=== PATIENT | male | born 2005 | race African-American/Black ===

== ENCOUNTER 2024-02-03 11:26 | Emergency (ER) | payer OTHER, SELFPAY ==
[2024-02-03 11:29] VITALS: BP 143/77; PULSE 109; RESP 16; TEMP 37; O2SAT 97; BMI 29.8
--- NOTE | 2024-02-03 11:38 | ED_ITS ---
HPI - General Adult General Date Seen: 02/03/24 Chief complaint: Extremity Pain/Injury, Upper Stated complaint: Dislocated left middle finger Time Seen by Provider: 02/03/24 11:35 History of Present Illness HPI narrative: This is a very pleasant generally help 18-year-old male presenting to the ER today with his teammate for evaluation of a left hand middle finger injury. 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 Injury happened less than an hour prior to arrival. He jammed his finger. His team diabetes trainer thought that he had a finger dislocation and try to relocated, but was unsuccessful. Therefore the diabetes trainer sent the patient in. He is having pain at the PIP joint. He is not able to flex and extend that joint it does appear to be deformed. No distal numbness. Normal distal cap refill. No other injuries per Related Data Home Medications ?Medication ?Instructions ?Recorded ?Confirmed No Known Home Medications 02/03/24 02/03/24 Allergies Allergy/AdvReac Type Severity Reaction Status Date / Time No Known Drug Allergies Allergy Verified 02/03/24 11:29 PFSH PFS Social History Smoking Status: Never smoker Do you use any of these nicotine containing products: None How often do you have a drink containing alcohol: 2-4 times a month AUDIT-C Alcohol total score: 2 Non-prescribed substance use: denies use Exam Narrative: Exam Narrative: Constitutional: Appears well-developed and well-nourished. Active. Non-toxic appearing. HENT: Head: Atraumatic. No signs of injury. Nose: No nasal discharge. Mouth/Throat: Mucous membranes are moist. Pharynx is normal. Tonsils symmetric. Uvula midline. Airway patent. Eyes: Conjunctivae normal and EOM are normal. Pupils are equal, round, and reactive to light. Right eye exhibits no discharge. Left eye exhibits no discharge. No icterus. Neck: Normal range of motion. Neck supple. No adenopathy. No stridor. Cardiovascular: Normal rate and regular rhythm. No murmur heard. No murmurs, rubs, or gallops. Brisk capillary refill Pulmonary/Chest: Effort normal. No stridor. No respiratory distress. Musculoskeletal: Normal except for left hand 3rd digit (middle finger). Patient has pain with swelling and deformity at the PIP joint. The PIP P joint is flexed and almost appears to be slightly ulnar deviated. He is not able to extend the PIP joint. He is not having any tenderness at the D IP joint but he is not able to flex the D IP. There appears to be some volar dislocation and ulnar angulation at the PIP joint or possibly angulation in the middle phalanx. Normal distal cap refill. He normal radial and ulnar digital nerve sensory function. No tenderness of the metacarpal, MCP joint, or the proximal phalanges. Distal phalanges nontender. Neurological: Alert. Normal strength. No cranial nerve deficit or sensory deficit. Coordination normal. GCS eye subscore is 4. GCS verbal subscore is 5. GCS motor subscore is 6. Skin: Skin is warm. No rash noted. Const: Vital Signs, click to edit/add: Vital Signs - 24 hr 02/03/24 11:29 Temperature 98.6 F Pulse Rate [Pulse Oximeter] 109 H Respiratory Rate 16 Blood Pressure [Ri ght Upper Arm] 143/77 H Pulse Oximetry 97 Oxygen Delivery Me thod Room Air Course Course ED Course: Patient arrived was triaged into ER room 3 with his friend. Discussed options for pain management. Patient gave verbal consent for digital block Procedure: Digital block Indication-left hand middle finger injury and middle finger pain Sterile preparation using Betadine. Using and 27 gauge needle from a volar approach we infiltrated 3 mL of 1% lidocaine without epi at the proximal phalanx. We massaged the anesthetic around. Good anesthesia and pain control the finger were achieved. No complications noted Patient was sent for x-rays. I reviewed the plain films. No obvious PIP joint dislocation but there is a small bony fragment on the dorsum the PIP joint suspicious for a probable tendon avulsion injury. On reexamination now the patient is numb I was able to manipulate his PIP joint into full extension. He is able to flex it but when flexing it actually needs to more extension of the D IP joint. Probable boutonniere deformity Vital Signs Vital signs: Initial Vital Signs Temperature 98.6 F 02/03/24 11:29 Temperature Source Temporal Artery Scan 02/03/24 11:29 Pulse Rate 109 H 02/03/24 11:29 Respiratory Rate 16 02/03/24 11:29 Blood Pressure 143/77 H 02/03/24 11:29 Blood Pressure Mean 99 02/03/24 11:29 Blood Pressure Position High-Fowlers 02/03/24 11:29 Pulse Oximetry 97 02/03/24 11:29 Oxygen Delivery Method Room Air 02/03/24 11:29 Vital Signs Temperature 98.6 F 02/03/24 11:29 Pulse Rate 109 H 02/03/24 11:29 Respiratory Rate 16 02/03/24 11:29 Blood Pressure 143/77 H 02/03/24 11:29 Pulse Oximetry 97 02/03/24 11:29 Oxygen Delivery Method Room Air 02/03/24 11:29 Temperature 98.6 F 02/03/24 11:29 Pulse Rate 109 H 02/03/24 11:29 Respiratory Rate 16 02/03/24 11:29 Blood Pressure 143/77 H 02/03/24 11:29 Pulse Oximetry 97 02/03/24 11:29 Oxygen Delivery Method Room Air 02/03/24 11:29 Medical Decision Making MDM Narrative Medical decision making narrative: Very pleasant 18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 It sounds like he probably had a PIP joint dislocation that was relocated by his diabetes trainer prior to arrival. However he had ongoing difficulty with extending his PIP joint and the some swelling and possible deformity of his finger prompting his ER visit. After digital block x-rays were obtained. No definite dislocation but does show a small bony avulsion fragment on the dorsum of the PIP. Clinically after numbing his finger we are able to fully extend it passively but he is not able to actively extend his PIP joint any has a boutonniere deformity. Discussed with our orthopedic team. They would recommend referral outside of [facility] to a hand surgeon. Patient was able to discuss this with his team diabetes trainer and they already have a hand surgeon selected for him. Will place into a splint here today. Rest, ice, nonsteroidals or Tylenol if needed for pain. Follow up with his team diabetes trainer tomorrow and with hand surgeons as soon as possible. Questions answered. Provided with digital copies of his x-ray. Patient and his friend are comfortable for discharge Imaging Data XR finger, left hand: Attestation: I have reviewed the pertinent imaging results. My impression: No dislocation. Small chip of bone on the dorsum of the PIP. Radiologist's impression: Findings/Impression: Pinpoint 1 millimeter calcifications at the dorsal aspect of the PIP joint left 3rd digit suspicious for tiny avulsion fragments. No neelam dislocation. Associated soft tissue swelling left 3rd digit. 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 This is creating a problem in your finger called a boutonniere deformity. It is very important for you to follow-up with the hand team for re-evaluation. You will probably need surgery to repair the injured tendon and joint. Work with her green jobs trainer to arrange a appointment with ortho hand as soon as possible. Until you see the Ortho Hand Team, wear the splint to keep your finger knuckles safe and immobilized. Use Tylenol or ibuprofen if needed for pain. Use an ice pack for 15-20 minutes every 3-4 hours to help reduce swelling. If you have any problems such as severe or uncontrolled pain, numbness in her finger, or if her finger is dusky or pale, return to the ER right away to be rechecked. Prescriptions: No Action No Known Home Medications Follow Up/Referrals: Provider,Not a Local [Primary Care Provider] - Stand Alone Forms: That{img} Info Instructions
--- NOTE | 2024-02-03 11:49 | CRLHL7_ITS ---
For Patients: As a result of the Cures Act, medical imaging exams and procedure reports are released immediately into your electronic medical record. You may view this report before your referring provider. If you have questions, please contact your health care provider. Indication: Middle finger PIP injury Technique: Three views left 3rd digit Comparison: None Findings/Impression: Pinpoint 1 millimeter calcifications at the dorsal aspect of the PIP joint left 3rd digit suspicious for tiny avulsion fragments. No neelam dislocation. Associated soft tissue swelling left 3rd digit. Dictated by Bravo Cannon MD @ 02/03/2024 12:48:08 PM (Electronically Signed)
== END 2024-02-03 13:57 | disposition home or self-care (01) ==
PROVIDERS: Emergency Provider Emergency Medicine
DX: M20.022 Boutonniere deformity of left finger(s) (principal)
CPT/HCPCS: 73140; 99282; 99283